=== PATIENT | male | born 1965 ===

== ENCOUNTER 2016-10-11 09:28 | Emergency (ER) | payer OTHER ==
[2016-10-11] MEDS ORDERED: Sodium Chloride 0.9% 1,000 ML IV ONE (11:06)
[2016-10-11] MEDS ORDERED: Sodium Chloride 0.9% 1,000 ML ONE (11:11)
[2016-10-11 11:19] LABS: BASO % 0.4 % (0.0-2.0); EOS # 0.2 K/uL (0.0-0.7); EOS % 2.9 % (0.0-4.0); LYMPH # 2.3 K/uL (1.0-4.3); LYMPH % 43.1 % (20.0-40.0); MEAN CELL VOLUME 84.9 fL (80.0-94.0); MEAN CORPUSCULAR HEMOGLOBIN 28.4 pg (27.0-31.0); MEAN CORPUSCULAR HGB CONC 33.4 g/dL (33.0-37.0); MEAN PLATELET VOLUME 8.8 fL (7.2-11.7); MONO # 0.7 K/uL (0.0-0.8); MONO % 13.6 % (0.0-10.0); NRBC % 0.1 % (0.0-2.0); RED CELL DISTRIBUTION WIDTH 13.6 % (11.5-14.5); WHITE BLOOD COUNT 5.2 K/uL (4.8-10.8)
[2016-10-11 11:30] LABS: RBC URINE 14 /hpf (0-3); URINE BILIRUBIN NEGATIVE (NEGATIVE); URINE BLOOD 2+ (NEGATIVE); URINE COLOR Yellow (YELLOW); URINE GLUCOSE (UA) NORMAL (Normal); URINE KETONE NEGATIVE (NEGATIVE); URINE LEUKOCYTE ESTERASE NEG Leu/uL (Negative); URINE PROTEIN NEGATIVE (NEGATIVE); URINE UROBILINOGEN NORMAL mg/dL (0.2-1.0); WBC URINE 1 /hpf (0-5)
[2016-10-11 11:33] LABS: CHLORIDE 96 mmol/L (98-107)
[2016-10-11 11:34] LABS: POTASSIUM 3.8 mmol/L (3.6-5.2); SODIUM 138 mmol/L (132-148)
[2016-10-11 11:36] LABS: ALB/GLOB RATIO 1.1 (1.0-2.1); ALKALINE PHOSPHATASE 76 U/L (38-126); AST/SGOT 45 U/L (17-59); BILIRUBIN,TOTAL 0.7 mg/dL (0.2-1.3); CARBON DIOXIDE 28 mmol/L (22-30); GFR AFRICAN-AMERICAN > 60; TOTAL PROTEIN 7.4 g/dL (6.3-8.3)
[2016-10-11 11:37] LABS: ALT/SGPT 48 U/L (21-72); BLOOD UREA NITROGEN 11 mg/dL (9-20); CALCIUM 8.3 mg/dl (8.6-10.4); GLUCOSE,RANDOM 90 mg/dL (75-110)
--- NOTE | 2016-10-11 13:17 | CT ---
PROCEDURE: CT Abdomen and Pelvis without intravenous contrast HISTORY: Pain. Right-sided abdominal pain COMPARISON: None. TECHNIQUE: Axial and reformatted coronal and sagittal CT images of the abdomen and pelvis were obtained without IV or oral contrast administration.. Contrast Dose: 0 Radiation dose: Total exam DLP = 1221.09 mGy-cm. FINDINGS: LOWER THORAX: There is calcified nodule at the left lower lobe measures 11 millimeter likely represent calcified granuloma. LIVER: Mild hepatomegaly with findings suggestive of mild hepatic steatosis. GALLBLADDER AND BILE DUCTS: The gallbladder is not visualized. PANCREAS: Unremarkable. No gross lesion or ductal dilatation. SPLEEN: Unremarkable. ADRENALS: Unremarkable. No mass. KIDNEYS AND URETERS: There is 3.5 x 4 millimeter nonobstructing calculus at the upper pole of the left kidney. Mildly dilated collecting system of both kidneys. No evidence of ureteral stone. Low-attenuation lesion seen at the upper pole right kidney measures 1.3 centimeter. VASCULATURE: Unremarkable. No aortic aneurysm. BOWEL: Unremarkable. No obstruction. No gross mural thickening. Scattered colonic diverticulosis are seen without evidence of diverticulitis. APPENDIX: No evidence of appendicitis. PERITONEUM: Unremarkable. No free fluid. No free air. LYMPH NODES: Unremarkable. No enlarged lymph nodes. BLADDER: Unremarkable. REPRODUCTIVE: Mildly enlarged prostate. BONES: No acute fracture. OTHER FINDINGS: None. IMPRESSION: 4 millimeter nonobstructing calculus at the upper pole of the left kidney. Mildly dilated collecting system of both kidneys without evidence of obstructing stone. Colonic diverticulosis without evidence of diverticulitis. No attenuation lesion at the upper pole right kidney. If clinically warranted further assessment by ultrasound may be obtained. Status post cholecystectomy. No evidence of appendicitis or pancreatitis.
--- NOTE | 2016-10-11 13:27 | C.PDOC ---
History Of Present Illness 50 y/o male presents to the ED complaining of bilateral lower back pain that radiates to the abdomen and down the legs x 4 days. Patient reports that the pain is worse with movement. He also notes history of similar symptoms at which time he was diagnosed with kidney stones. Patient denies trauma, fever, diarrhea , vomiting today, dysuria, hematuria, or testicular pain. 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 was used) Onset/Duration Of Symptoms: Days (4), Gradual, Persistent Current Symptoms Are (Timing): Still Present Exacerbating Factor(s): Movement Recent travel outside of the [place]: No Past Medical History Reviewed: Historical Data, Nursing Documentation, Vital Signs Vital Signs: Last Vital Signs Temp 97.9 F 10/11/16 15:52 Pulse 64 10/11/16 15:52 Resp 16 10/11/16 15:52 BP 115/75 10/11/16 15:52 Pulse Ox 98 10/11/16 15:52 - Medical History PMH: Kidney Stones Surgical History: Appendectomy, Cholecystectomy Family History: States: Unknown Family Hx - Social History Hx Tobacco Use: No Hx Alcohol Use: No Hx Substance Use: No - Immunization History Hx Tetanus Toxoid Vaccination: No Hx Influenza Vaccination: No Hx Pneumococcal Vaccination: No Review Of Systems Except As Marked, All Systems Reviewed And Found Negative. Constitutional: Negative for: Fever Gastrointestinal: Positive for: Abdominal Pain. Negative for: Vomiting (today) , Diarrhea Genitourinary: Negative for: Dysuria, Hematuria, Other (testicular pain) Musculoskeletal: Positive for: Back Pain, Leg Pain Physical Exam - Physical Exam Appears: Non-toxic, No Acute Distress Skin: Normal Color, Warm, Dry Head: Atraumatic, Normacephalic Eye(s): bilateral: Normal Inspection, EOMI Nose: Normal Oral Mucosa: Moist Neck: Normal ROM Chest: Symmetrical Cardiovascular: Rhythm Regular Respiratory: Normal Breath Sounds, No Accessory Muscle Use Gastrointestinal/Abdominal: Normal Exam, Soft, No Tenderness, No Guarding, No Rebound Back: No CVA Tenderness, No Vertebral Tenderness, Other (lower paralumbar tenderness) Extremity: Normal ROM, No Calf Tenderness, No Swelling Neurological/Psych: Oriented x3, Normal Speech, Normal Cognition, Normal Motor, Normal Sensation Gait: Steady ED Course And Treatment - Laboratory Results Result Diagrams: 10/11/16 11:13 10/11/16 11:13 O2 Sat by Pulse Oximetry: 99 (ra) Pulse Ox Interpretation: Normal - CT Scan/US CT Abd/Pelvis Other Rad Studies (CT/US): Read By Radiologist (Bonita Montero), Radiology Report Reviewed CT/US Interpretation: FINDINGS: LOWER THORAX: There is calcified nodule at the left lower lobe measures 11 millimeter likely represent calcified granuloma. LIVER: Mild hepatomegaly with findings suggestive of mild hepatic steatosis. GALLBLADDER AND BILE DUCTS: The gallbladder is not visualized. PANCREAS: Unremarkable. No gross lesion or ductal dilatation. SPLEEN: Unremarkable. ADRENALS: Unremarkable. No mass. KIDNEYS AND URETERS: There is 3.5 x 4 millimeter nonobstructing calculus at the upper pole of the left kidney. Mildly dilated collecting system of both kidneys. No evidence of ureteral stone. Low-attenuation lesion seen at the upper pole right kidney measures 1.3 centimeter. VASCULATURE: Unremarkable. No aortic aneurysm. BOWEL : Unremarkable. No obstruction. No gross mural thickening. Scattered colonic diverticulosis are seen without evidence of diverticulitis. APPENDIX: No evidence of appendicitis. PERITONEUM: Unremarkable. No free fluid. No free air. LYMPH NODES: Unremarkable. No enlarged lymph nodes. BLADDER: Unremarkable. REPRODUCTIVE: Mildly enlarged prostate. BONES: No acute fracture. OTHER FINDINGS: None. IMPRESSION: 4 millimeter nonobstructing calculus at the upper pole of the left kidney. Mildly dilated collecting system of both kidneys without evidence of obstructing stone. Colonic diverticulosis without evidence of diverticulitis. No attenuation lesion at the upper pole right kidney. If clinically warranted further assessment by ultrasound may be obtained. Status post cholecystectomy. No evidence of appendicitis or pancreatitis. Progress Note: Plan: Blood Work, Urinalysis, Urine Culture, CT Abd/Pelvis, Flexeril PO, Toradol IVP, IV Fluids. On reassessment, patient reports improvement of back pain. Upon discharge, pt notes that he has occassional pain with ejaculation. No penial discharge. No testicular pain. Pt requests STD testing and prophylaxis. Rocephin and Zithromycin ordered. Patient is resting comfortably, no fever, no bony tenderness, no numbness, no weakness, no abdominal pain. Patient is ambulatory in the Emergency Department with no discomfort. Patient was instructed to follow up with physician/clinic in 2-5 days for further evaluation or return to ED if symptoms persist or worsen. Case discussed with Dr Macias who evaluated CT results and labs and agreed upon treatment and discharge. Disposition - Disposition Referrals: [facility] [Outside] Disposition: HOME/ ROUTINE Disposition Time: 13:26 Condition: GOOD Additional Instructions: Vaya a hager mdico o la clnica en 2-5 tucker sin falta, para mas evaluacin. [place] los medicamentos devorah indicado. Volver a la gwen de emergencia en cualquier momento si los sntomas persisten o empeoran. 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 - Scribe Statement The provider has reviewed the documentation as recorded by the Scribe (Masha Kent) All medical record entries made by the Scribe were at my direction and personally dictated by me. I have reviewed the chart and agree that the record accurately reflects my personal performance of the history, physical exam, medical decision making, and the department course for this patient. I have also personally directed, reviewed, and agree with the discharge instructions and disposition.
[2016-10-11] MEDS ORDERED: cefTRIAXone (Rocephin) 250 mg Inj IVPB STA (14:37)
[2016-10-11] MEDS ORDERED: cefTRIAXone (Rocephin) 250 mg Inj IM STA (14:50)
[2016-10-11 15:52] VITALS: BP 115/75; PULSE 64; RESP 16; TEMP 97.9
[2016-10-11 17:34] VITALS: O2SAT 99
== END 2016-10-11 15:55 | disposition home or self-care (01) ==
LOC: C.ER 09:28
DX: M54.5 Low back pain (principal)
CPT/HCPCS: 74176; 80053; 81001; 85025; 87086; 87491; 87591; 96361; 96372; 96374; 99285; J0696; J1885; J7040

== ENCOUNTER 2016-10-17 11:02 | Emergency (ER) | payer OTHER ==
[2016-10-17 11:08] VITALS: BMI 32.8
[2016-10-17 11:12] VITALS: BP 132/85; PULSE 99; RESP 18; TEMP 97.7; O2SAT 96
--- NOTE | 2016-10-17 11:14 | C.PDOC ---
History Of Present Illness 50 yr old male presents to the ER for complaints of persistent right sciatica pain, worse since last night. Patient was seen on 10/11 for similar complaints, had a negative CT and discharged with Naproxyn and Flexeril, reports had limited relief. Patient reports the pain is worse with forwards flexion. Patient denies abdominal pain, diarrhea, dysuria, hematuria, incontinence, weakness or numbness. SEEN 10/11 FOR SAME, NEG CT DX SCIATICA DC NAPROXYN AND FLEXERIL Time Seen by Provider: 10/17/16 11:13 Chief Complaint (Nursing): Back Pain History Per: Patient History/Exam Limitations: no limitations Onset/Duration Of Symptoms: Persistent Current Symptoms Are (Timing): Still Present Past Medical History Reviewed: Historical Data, Nursing Documentation, Vital Signs Vital Signs: Last Vital Signs Temp 97.7 F 10/17/16 11:08 Pulse 99 H 10/17/16 11:08 Resp 18 10/17/16 11:08 BP 132/85 10/17/16 11:08 Pulse Ox 96 10/17/16 12:09 - Medical History PMH: Kidney Stones Surgical History: Appendectomy, Cholecystectomy Family History: States: No Known Family Hx - Social History Hx Tobacco Use: No Hx Alcohol Use: No Hx Substance Use: No - Immunization History Hx Tetanus Toxoid Vaccination: No Hx Influenza Vaccination: No Hx Pneumococcal Vaccination: No Review Of Systems Except As Marked, All Systems Reviewed And Found Negative. Gastrointestinal: Negative for: Abdominal Pain, Diarrhea Genitourinary: Negative for: Dysuria, Incontinence, Hematuria Neurological: Negative for: Weakness, Numbness Physical Exam - Physical Exam Appears: Non-toxic, In Acute Distress (Moderate ) Skin: Warm, Dry, No Rash Head: Atraumatic, Normacephalic Oral Mucosa: Moist Neck: Normal, Normal ROM, Supple Chest: Symmetrical, No Tenderness Cardiovascular: Rhythm Regular, No Murmur Back: Other (Limited ROM due to pain. No focal tenderness. ) Extremity: Normal ROM, No Swelling Neurological/Psych: Oriented x3, Normal Speech ED Course And Treatment O2 Sat by Pulse Oximetry: 96 Progress - Data Reviewed Data Reviewed: Old records Medical Decision Making Medical Decision Making: PLAN: * Lidoderm TD * Toradol IM Disposition Counseled Patient/Family Regarding: Diagnosis, Need For Followup, Rx Given - Disposition Referrals: [facility] [Outside] [facility] [Other] Disposition: HOME/ ROUTINE Disposition Time: 11:43 Condition: IMPROVED Prescriptions: Lidocaine 5% [Lidoderm] 1 ea TD PRN PRN #10 patch PRN Reason: Pain, Moderate (4-7) Gabapentin [Neurontin] 300 mg PO TID #30 cap Instructions: Sciatica (ED) Print Language: MARSHALLESE - Clinical Impression Clinical Impression: Sciatica - Scribe Statement The provider has reviewed the documentation as recorded by the Yenifer Khan Provider Attestation: All medical record entries made by the Yenifer were at my direction and personally dictated by me. I have reviewed the chart and agree that the record accurately reflects my personal performance of the history, physical exam, medical decision making, and the department course for this patient. I have also personally directed, reviewed, and agree with the discharge instructions and disposition.
[2016-10-17] MEDS ORDERED: Lidocaine 5% Patch TD STA (11:40)
[2016-10-17] MEDS ORDERED: Lidocaine 5% Patch TD ONE (11:52)
== END 2016-10-17 11:59 | disposition home or self-care (01) ==
LOC: C.ER 11:02
DX: M54.41 Lumbago with sciatica, right side (principal)
CPT/HCPCS: 96372; 99283; J1885

== ENCOUNTER 2017-04-06 08:02 | Emergency (ER) | payer OTHER ==
[2017-04-06 08:03] VITALS: BMI 32.8
--- NOTE | 2017-04-06 09:08 | C.PDOC ---
History Of Present Illness 51 y/o male presents to ED with complaints of testicular pain, painful urination and ejaculation pain. Patient denies fever, chills, n/v/d or any other complaints at this time. Time Seen by Provider: 04/06/17 08:19 Chief Complaint (Nursing): Male Genitourinary History Per: Patient History/Exam Limitations: no limitations Onset/Duration Of Symptoms: Days Current Symptoms Are (Timing): Still Present Past Medical History Reviewed: Historical Data, Nursing Documentation, Vital Signs Vital Signs: Last Vital Signs Temp 97.9 F 04/06/17 11:04 Pulse 62 04/06/17 11:04 Resp 16 04/06/17 11:04 BP 136/89 04/06/17 11:04 Pulse Ox 96 04/06/17 16:28 - Medical History PMH: Kidney Stones Surgical History: Appendectomy, Cholecystectomy Family History: States: No Known Family Hx - Social History Hx Tobacco Use: No Hx Alcohol Use: No Hx Substance Use: No - Immunization History Hx Tetanus Toxoid Vaccination: No Hx Influenza Vaccination: No Hx Pneumococcal Vaccination: No Review Of Systems Except As Marked, All Systems Reviewed And Found Negative. Constitutional: Negative for: Fever, Chills Gastrointestinal: Negative for: Nausea, Vomiting Genitourinary: Positive for: Dysuria, Penile Pain. Negative for: Frequency Skin: Negative for: Rash Physical Exam - Physical Exam Appears: Non-toxic, No Acute Distress Skin: Normal Color, Warm, Dry, No Rash Head: Atraumatic, Normacephalic Eye(s): bilateral: Normal Inspection Oral Mucosa: Moist Neck: Normal ROM, Supple Chest: Symmetrical Male Genital: No Testicular Tenderness, No Testicular Swelling, Other ( Tenderness to perineal area) Neurological/Psych: Oriented x3 ED Course And Treatment O2 Sat by Pulse Oximetry: 96 (RA) Pulse Ox Interpretation: Normal - Other Rad No standard instances X-Ray: Viewed By Me, Read By Radiologist Interpretation: FINDINGS: RIGHT TESTICLE: Measures 4.1 x 1.5 x 2.86 cm. Normal echotexture and flow. RIGHT EPIDIDYMIS: Epididymal head measures 1.16 x 0.93 x 1.32 cm. Grossly unremarkable appearance with normal flow. LEFT TESTICLE: Measures 4.4 x 1.86 x 3.24 cm. Normal echotexture and flow. LEFT EPIDIDYMIS: Epididymal head measures 1.3 x 0.9 x 0.88 cm. Grossly unremarkable appearance with normal flow. HYDROCELE: Small bilateral hydrocele is noted. . VARICOCELE: None. OTHER FINDINGS: None. IMPRESSION: No ultrasound evidence of testicular torsion or mass lesion. Small bilateral hydroceles. - CT Scan/US No standard instances Other Rad Studies (CT/US): Read By Radiologist, Radiology Report Reviewed CT/US Interpretation: LOWER THORAX: No visible consolidation, pleural effusion , or pneumothorax. 12 mm densely calcified nodule at the left lung base. LIVER : Unremarkable unenhanced appearance. GALLBLADDER AND BILE DUCTS: The gallbladder is not identified, presumably due to cholecystectomy. Surgical clips are not evident. PANCREAS: Unremarkable unenhanced appearance. SPLEEN: Unremarkable unenhanced appearance. ADRENALS: Unremarkable unenhanced appearance. KIDNEYS AND URETERS: No hydronephrosis or obstructing renal calculus. Hypoattenuation lesion within the right upper pole kidney measures approximately 1.3 cm. BLADDER: The urinary bladder appears unremarkable. REPRODUCTIVE: The prostate gland measures approximately 4.1 x 4.7 cm. APPENDIX : The appendix is not identified. No secondary signs of acute appendicitis. BOWEL: The stomach is nondistended. Lack of oral contrast limits evaluation for bowel pathology. The bowel loops appear within normal limits of caliber without evidence of intestinal obstruction. Diverticulosis without CT evidence of acute diverticulitis. PERITONEUM: No significant free fluid. No definite free air. LYMPH NODES: No bulky lymphadenopathy identified. VASCULATURE: No aortic aneurysm. BONES: Extensive degenerative changes. OTHER FINDINGS: None. IMPRESSION: No acute findings identified. 12 mm densely calcified nodule, left lung base. Cholecystectomy. Diverticulosis without CT evidence of acute diverticulitis. Low-attenuation lesion within the right upper pole kidney measures approximately 1.3 cm. Suggest ultrasound for further evaluation if indicated. Additional findings as above. Progress Note: On re-evaluation abdomen soft non-tender. in no distress. discharged to follow up with urology Reassessment Condition: Unchanged Medical Decision Making Medical Decision Making: Plan: * US * UA Disposition Counseled Patient/Family Regarding: Studies Performed, Diagnosis, Need For Followup, Rx Given - Disposition Referrals: [facility] [Outside] [facility] [Outside] Pito Brunner MD [Staff Provider] - Disposition: HOME/ ROUTINE Disposition Time: 11:30 Condition: STABLE Prescriptions: Naproxen [Naprosyn] 1 tab PO BID PRN #25 tab PRN Reason: Pain Instructions: Testicle Pain (ED) Forms: [facility] (Czech), Work Excuse Print Language: BURMESE - POA Present On Arrival: None - Clinical Impression Clinical Impression: 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 - Scribe Statement The provider has reviewed the documentation as recorded by the Yenifer Connelly All medical record entries made by the Yenifer were at my direction and personally dictated by me. I have reviewed the chart and agree that the record accurately reflects my personal performance of the history, physical exam, medical decision making, and the department course for this patient. I have also personally directed, reviewed, and agree with the discharge instructions and disposition.
[2017-04-06 09:43] LABS: RBC URINE 6 /hpf (0-3); URINE BILIRUBIN NEGATIVE (NEGATIVE); URINE BLOOD 1+ (NEGATIVE); URINE COLOR Yellow (YELLOW); URINE GLUCOSE (UA) NORMAL (Normal); URINE KETONE NEGATIVE (NEGATIVE); URINE LEUKOCYTE ESTERASE NEG Leu/uL (Negative); URINE PROTEIN NEGATIVE (NEGATIVE); URINE UROBILINOGEN NORMAL mg/dL (0.2-1.0); WBC URINE < 1 /hpf (0-5)
--- NOTE | 2017-04-06 09:48 | US ---
HISTORY: pain TECHNIQUE: Realtime sonography through the scrotum with color and doppler flow. COMPARISON: None Available. FINDINGS: RIGHT TESTICLE: Measures 4.1 x 1.5 x 2.86 cm. Normal echotexture and flow. RIGHT EPIDIDYMIS: Epididymal head measures 1.16 x 0.93 x 1.32 cm. Grossly unremarkable appearance with normal flow. LEFT TESTICLE: Measures 4.4 x 1.86 x 3.24 cm. Normal echotexture and flow. LEFT EPIDIDYMIS: Epididymal head measures 1.3 x 0.9 x 0.88 cm. Grossly unremarkable appearance with normal flow. HYDROCELE: Small bilateral hydrocele is noted. . VARICOCELE: None. OTHER FINDINGS: None. IMPRESSION: No ultrasound evidence of testicular torsion or mass lesion. Small bilateral hydroceles.
--- NOTE | 2017-04-06 11:02 | CT ---
PROCEDURE: CT Abdomen and Pelvis without Oral or IV contrast. HISTORY: Pain COMPARISON: CT abdomen and pelvis without contrast performed 10/11/16 TECHNIQUE: Contiguous axial images of the abdomen and pelvis. No oral or IV contrast administered. Coronal and Sagittal reformats generated and reviewed. Radiation dose: Total exam DLP = 611.53 mGy-cm. This CT exam was performed using one or more of the following dose reduction techniques: Automated exposure control, adjustment of the mA and/or kV according to patient size, and/or use of iterative reconstruction technique. FINDINGS: There is limited evaluation of the solid organs without the administration of IV contrast. LOWER THORAX: No visible consolidation, pleural effusion, or pneumothorax. 12 mm densely calcified nodule at the left lung base. LIVER: Unremarkable unenhanced appearance. GALLBLADDER AND BILE DUCTS: The gallbladder is not identified, presumably due to cholecystectomy. Surgical clips are not evident. PANCREAS: Unremarkable unenhanced appearance. SPLEEN: Unremarkable unenhanced appearance. ADRENALS: Unremarkable unenhanced appearance. KIDNEYS AND URETERS: No hydronephrosis or obstructing renal calculus. Hypoattenuation lesion within the right upper pole kidney measures approximately 1.3 cm. BLADDER: The urinary bladder appears unremarkable. REPRODUCTIVE: The prostate gland measures approximately 4.1 x 4.7 cm. APPENDIX: The appendix is not identified. No secondary signs of acute appendicitis. BOWEL: The stomach is nondistended. Lack of oral contrast limits evaluation for bowel pathology. The bowel loops appear within normal limits of caliber without evidence of intestinal obstruction. Diverticulosis without CT evidence of acute diverticulitis. PERITONEUM: No significant free fluid. No definite free air. LYMPH NODES: No bulky lymphadenopathy identified. VASCULATURE: No aortic aneurysm. BONES: Extensive degenerative changes. OTHER FINDINGS: None. IMPRESSION: No acute findings identified. 12 mm densely calcified nodule, left lung base. Cholecystectomy. Diverticulosis without CT evidence of acute diverticulitis. Low-attenuation lesion within the right upper pole kidney measures approximately 1.3 cm. Suggest ultrasound for further evaluation if indicated. Additional findings as above.
[2017-04-06 11:05] VITALS: BP 136/89; PULSE 62; RESP 16; TEMP 97.9
[2017-04-06 11:22] VITALS: O2SAT 96
== END 2017-04-06 11:30 | disposition home or self-care (01) ==
LOC: C.ER 08:02
DX: N50.819 Testicular pain, unspecified (principal)